=== PATIENT | male | born 1990 | race Caucasian/White ===

== ENCOUNTER 2022-04-11 11:34 | Emergency (ER) | payer BC, MEDICAID ==
[~2022-04-11] VITALS: Ht 185.4 cm; Wt 129.3 kg
[2022-04-11 11:46] VITALS: BP_SYST 151
[2022-04-11] MEDS ORDERED: CEPH-548 PO (12:54)
[2022-04-11 13:03] VITALS: BP_SYST 129
[2022-04-11] MEDS ORDERED: IBUP-1969 PO (13:14)
== END 2022-04-11 13:03 | disposition home or self-care (01) ==
LOC: SED 11:34
DX: Z48.00 Encounter for change or removal of nonsurgical wound dressing (principal); Z79.899 Other long term (current) drug therapy
CPT/HCPCS: 99283

== ENCOUNTER 2022-12-08 21:09 | Emergency (ER) | payer BC, MEDICAID ==
[~2022-12-08] VITALS: Ht 185.4 cm; Wt 140.2 kg
[~2022-12-08 21:09] MED LIST: CEPH-548 PO; IBUP-1969 PO
[2022-12-08 21:29] VITALS: BP_SYST 163; PULSE 76; RESP 19; TEMP 97; O2SAT 100
== END 2022-12-09 00:15 | disposition left against medical advice (07) ==
LOC: SED 21:09
DX: R06.02 Shortness of breath (principal); Z53.21 Procedure and treatment not carried out due to patient leaving prior to being seen by health care provider
CPT/HCPCS: 99281